=== PATIENT | female | born 1995 | race Caucasian/White ===

== ENCOUNTER 2021-09-29 16:26 | Emergency (ER) | payer SELFPAY ==
[~2021-09-29] VITALS: Ht 170.2 cm; Wt 70.0 kg
[~2021-09-29 16:26] MED LIST: NAUSEA MED; PRENATAL ONE T1 EACH PO
[2021-09-29 16:31] VITALS: BP 122/84
[2021-09-29] MEDS ORDERED: ondansetron 4mg rapidly disintigrating tab PO ONE (17:40)
[2021-09-29] MEDS ORDERED: ONDA4TAB12 PO (18:27)
== END 2021-09-29 19:56 | disposition home or self-care (01) ==
LOC: ER 16:27
DX: S06.0X0A Concussion without loss of consciousness, initial encounter (principal); Z98.890 Other specified postprocedural states; Z88.2 Allergy status to sulfonamides; W22.8XXA Striking against or struck by other objects, initial encounter; Y93.89 Activity, other specified; Y92.89 Other specified places as the place of occurrence of the external cause; Y99.8 Other external cause status
CPT/HCPCS: 70450; 99284